=== PATIENT | female | born 1945 | race Caucasian/White ===

== ENCOUNTER → 2016-08-09 | Outpatient (CLI) | payer BC ==
--- OUTSIDE RECORDS SUMMARY | 2016-08-09 10:55 | XMS REPORT | Continuity of Care Document ---
Author Author [facility] Organization [facility] Address Unknown Phone Unavailable Allergies Active Description Code Type Severity Reaction Onset Reported/Identified Relationship to Patient Clinical Status Yes No Known Drug Allergies [id number] Drug Allergy Unknown N/ A 06/03/2010 Medications Problems Date Dx Coded Attending Type Code Diagnosis Diagnosed By 08/20/2014 Ot V76.12 08/20/2014 ILIA ZHU MD Ot V76.12 08/20/2014 AUDRA JACKSON, ILIA Martini Ot 793.89 08/20/2014 AUDRA JACKSON, ILIA Martini Ot 793.80 08/20/2014 ILIA ZHU MD Ot 793.80 08/20/2014 ILIA ZHU MD Ot V67.9 03/24/2015 Ot V76.12 03/24/2015 ILIA ZHU MD Ot V76.12 03/24/2015 AUDRA JACKSON, ILIA Martini Ot 793.89 03/24/2015 ILIA ZHU MD Ot 793.80 03/24/2015 ILIA ZHU MD Ot 793.80 03/24/2015 ILIA ZHU MD Ot V67.9 03/29/2015 LUNA FERNANDEZ APRN Ot Z12.31 04/08/2015 LUNA FERNANDEZ APRN Ot Z12.31 Procedures Results Encounters ACCT No. Visit Date/Time Discharge Status Pt. Type Provider Facility Loc./Unit Complaint [id number] 03/24/2015 11:30:00 2014 23:59:59 CLS Outpatient LUNA FERNANDEZ APRN [facility] RAD [id number] 03/03/2014 10:51:00 2013 23:59:59 CLS Outpatient ILIA ZHU MD [facility] RAD [id number] 07/23/2013 10:18:00 2013 23:59:59 CLS Outpatient ILIA ZHU MD [facility] RAD [id number] 01/20/2013 13:01:00 2012 23:59:59 CLS Outpatient ILIA ZHU MD [facility] RAD [id number] 01/02/2013 09:21:00 2012 23:59:59 CLS Outpatient ILIA ZHU MD [facility] RAD [id number] 12/14/2011 10:25:00 Document Registration
--- NOTE | 2016-08-11 18:28 | Diagnostic Imaging Report ---
Bilateral screening mammogram The current study was also evaluated with a Computer Aided Detection (CAD) system. Indication: Screening. No current complaints stated on the questionnaire. COMPARISON: 03/24/15. FINDINGS: The breasts are composed of heterogeneously dense parenchyma which may decrease mammographic sensitivity. There is no mass, architectural distortion or suspicious cluster of calcifications. Allowing for technique and positional differences, no suspicious change is seen. IMPRESSION: Dense breasts with no definite change. ACR BI-RADS Category 2: Benign findings. Result letter will be mailed to the patient. Note: At least 10% of breast cancer is not imaged by mammography. Dictated by: Dictated on workstation # [id number]
== END ==
LOC: RAD 10:53
PROVIDERS: ATTEND Nurse Practitioner Family
DX: Z12.31 Encounter for screening mammogram for malignant neoplasm of breast (principal)
CPT/HCPCS: 77067